=== PATIENT | female | born 1960 | race Caucasian/White ===

== ENCOUNTER 2023-05-06 08:17 | Emergency (ER) | payer MEDICARE ==
[2023-05-06 08:25] VITALS: TEMP 97.8
[2023-05-06 08:29] LABS: Glucose,Whole Blood 158 mg/dL (70-110)
[2023-05-06] MEDS ORDERED: ONDANSETRON 4 MG/2 ML VIAL IVP STA ×2 (08:30→08:40)
--- NOTE | 2023-05-06 08:32 | ED ---
General Adult HPI - General Chief complaint: Chest Pain Stated complaint: Cardiac issues Time Seen by Provider: 05/06/23 08:18 Source: EMS Mode of arrival: EMS - History of Present Illness Initial comments: Dictation was produced using [employer] dictation software. please excuse any grammatical, word or spelling errors. Chief Complaint: 63-year-old female presents emergency Department with headache History of Present Illness: 63-year-old female she presents emergency Department with a headache. Patient woke up at 5 AM to get ready for work. Proximal to 1 hour prior to arrival states that she developed acute onset headache. States that it's bifrontal. She does not have a history of headaches. She does not see a doctor. She has no known history of hypertension. EMS brought patient to the emergency department. He states that he did a manual blood pressure and was found to be significantly elevated with systolics above 200. Patient complains of mild blurry vision to both eyes. Denies any numbness and paresthesias to the arms or legs. EMS reports that patient seemed a little altered upon initial evaluation. She did get some fluids and while en route to the emergency department her symptoms of altered mentation improved. Patient reports that she woke up at 5 AM felt normal. She reports that 1 hour prior to arrival did she start to develop headache.He was reports that patient noticed bradycardia were heart rate dropped briefly to 38 The ROS documented in this emergency department record has been reviewed and confirmed by me. Those systems with pertinent positive or negative responses have been documented in the HPI. All other systems are other negative and/or noncontributory. - Related Data Allergies Allergy/AdvReac Type Severity Reaction Status Date / Time No Known Allergies Allergy Verified 05/06/23 08:25 Review of Systems ROS Statement: Those systems with pertinent positive or pertinent negative responses have been documented in the HPI. ROS Other: All systems not noted in ROS Statement are negative. Past Medical History Past Medical History: No Reported History History of Any Multi-Drug Resistant Organisms: None Reported Past Surgical History: No Surgical Hx Reported Smoking Status: Vaper Past Alcohol Use History: None Reported Past Drug Use History: None Reported General Exam - General Exam Comments Initial Comments: PHYSICAL EXAM: General Impression: Alert and oriented x3, mild distress secondary to pain HEENT: Normocephalic atraumatic, extra-ocular movements intact, pupils equal and reactive to light bilaterally, mucous membranes moist. Cardiovascular: Heart regular rate and rhythm Chest: Able to complete full sentences, no retractions, no tachypnea Abdomen: abdomen soft, non-tender, non-distended, no organomegaly Musculoskeletal: Pulses present and equal in all extremities, no peripheral edema Motor: no focal deficits noted Neurological: CN II-XII grossly intact, no focal motor or sensory deficits noted Skin: Intact with no visualized rashes Psych: Normal affect and mood Course Vital Signs 05/06/23 05/06/23 05/06/23 08:18 08:30 08:49 Temperature 97.8 F Pulse Rate 62 60 63 Respiratory 22 20 20 Rate Blood Pressure 216/130 215/120 186/102 O2 Sat by Pulse 98 97 97 Oximetry 05/06/23 05/06/23 05/06/23 09:10 09:20 09:29 Temperature Pulse Rate 68 61 61 Respiratory 20 18 18 Rate Blood Pressure 176/110 154/106 157/88 O2 Sat by Pulse 96 97 97 Oximetry 05/06/23 09:32 Temperature Pulse Rate 60 Respiratory 18 Rate Blood Pressure 153/94 O2 Sat by Pulse 97 Oximetry - Reevaluation(s) Reevaluation #1: 05/06/23 09:12 Computed tomography scan reviewed by me of the brain shows that patient has intracranial bleed very suspicious for ruptured intracranial artery aneurysm. Code stroke page. Case discussed with on-call stroke neurologist Dr. Lugo requested patient be transferred to [facility]. Patient started on labetalol infusion. EKG Findings - EKG Comments: EKG Findings:: My EKG interpretation: Ventricular rate 69, sinus rhythm,. 169, QRS 80, QTc 450. No MO prolongation, no QTC prolongation, no ST or T-wave changes noted. Multiple PVCs Overall, this EKG is unremarkable Medical Decision Making - Medical Decision Making Was pt. sent in by a medical professional or institution (, PA, SENIOR SQL DBA, urgent care, hospital, or [place] health care facility...) When possible be specific @ -No Did you speak to anyone other than the patient for history (EMS, parent, family, police, friend...)? What history was obtained from this source @ -History obtained from EMS as described above Did you review nursing and triage notes (agree or disagree)? Why? @ -I reviewed and agree with nursing and triage notes Were old charts reviewed (outside hosp., previous admission, EMS record, old EKG, old radiological studies, urgent care reports/EKG's, [place] health [facility] facility records)? Report findings @ -No old charts were reviewed Differential Diagnosis (chest pain, altered mental status, abdominal pain women, abdominal pain men, vaginal bleeding, musculoskeletal, weakness, fever, dyspnea, syncope, headache, dizziness, GI bleed, back pain, seizure, CVA, palpatations, mental health)? @ -Differential Headache: Migraine, tension, cluster, carbon monoxide, central venous thrombosis, pension karma temporal arteritis, acute closure glaucoma, intercranial hemorrhage, mastoiditis, sinusitis, head injury, this is not meant to be an all-inclusive list. EKG interpreted by me (3pts min.). @ -See above X-rays interpreted by me (1pt min.). @ -None done CT interpreted by me (1pt min.). @ -CT brain shows no intracranial bleed U/S interpreted by me (1pt. min.). @ -None done What testing was considered but not performed or refused? (CT, X-rays, U/S, labs)? Why? @ -None What meds were considered but not given or refused? Why? @ -None Did you discuss the management of the patient with other professionals (professionals i.e. , PA, SENIOR SQL DBA, lab, RT, psych nurse, social and human services assistant, accounts payable specialist, teacher, chief legal officer, protective services case worker)? Give summary @ -A discussed with Dr. Lugo as described above Was smoking cessation discussed for >3mins.? @ -No Was critical care preformed (if so, how long)? @ -Yes, 33 minutes Were there social determinants of health that impacted care today? How? (Homelessness, low income, unemployed, alcoholism, drug addiction, transportation, low edu. Level, literacy, decrease access to med. care, residential, rehab)? @ -No Was there de-escalation of care discussed even if they declined (Discuss DNR or withdrawal of care, Hospice)? DNR status @ -No What co-morbidities impacted this encounter? (DM, HTN, Smoking, COPD, CAD, Cancer, CVA, ARF, Chemo, Hep., AIDS, mental health diagnosis, sleep apnea, morbid obesity)? @ -None Was patient admitted / discharged? Hospital course, mention meds given and route, prescriptions, significant lab abnormalities, going to OR and other pertinent info. @ -63-year-old female presents to emergency department with clinical presentation suspicious for ruptured intracranial aneurysm. Vital signs upon arrival shows significant elevated blood pressure. Patient rest of her CT for CT brain showed intracranial bleed. Code stroke page. Patient received CT angiography. Case discussed with stroke neurologist for transferred to [facility]. Case discussed with patient. Patient on labetalol infusion for blood pr essure control. Patient transferred Case discussed with transfer line. Case discussed with [facility] who is accepting patient for ER to [facility] transfer. Undiagnosed new problem with uncertain prognosis? @ -No Drug Therapy requiring intensive monitoring for toxicity (Heparin, Nitro, Insulin, Cardizem)? @ -No Were any procedures done? @ -No Diagnosis/symptom? Acute, or Chronic, or Acute on Chronic? Uncomplicated (without systemic symptoms) or Complicated (systemic symptoms)? @ -1. Ruptured intracranial arterial aneurysm Side effects of treatment? @ -No Exacerbation, Progression, or Severe Exacerbation? @ -No Poses a threat to life or bodily function? How? (Chest pain, [place], [place], pneumonia, PE, COPD, DKA, ARF, appy, cholecystitis, CVA, Diverticulitis, Homicidal, Suicidal, threat to staff... and all critical care pts) @ -yes - Lab Data Result diagrams: 05/06/23 08:30 05/06/23 08:30 Lab Results 05/06/23 05/06/23 05/06/23 Range/Units 08:28 08:30 08:30 WBC 8.3 (3.8-10.6) k/uL RBC 4.98 (3.80-5.40) m/uL Hgb 14.3 (11.4-16.0) gm/dL Hct 44.9 (34.0-46.0) % MCV 90.0 (80.0-100.0) fL MCH 28.7 (25.0-35.0) pg MCHC 31.9 (31.0-37.0) g/dL RDW 13.8 (11.5-15.5) % Plt Count 310 (150-450) k/uL MPV 7.3 Neutrophils % 63 % Lymphocytes % 29 % Monocytes % 5 % Eosinophils % 1 % Basophils % 0 % Neutrophils # 5.2 (1.3-7.7) k/uL Lymphocytes # 2.4 (1.0-4.8) k/uL Monocytes # 0.4 (0-1.0) k/uL Eosinophils # 0.1 (0-0.7) k/uL Basophils # 0.0 (0-0.2) k/uL PT 10.2 (9.0-12.0) sec INR 1.0 (<1.2) APTT 18.3 L (22.0-30.0) sec Sodium (137-145) mmol/L Potassium (3.5-5.1) mmol/L Chloride (98-107) mmol/L Carbon Dioxide (22-30) mmol/L Anion Gap mmol/L BUN (7-17) mg/dL Creatinine (0.52-1.04) mg/dL Est GFR (CKD-EPI)AfAm (>60 ml/min/1.73 sqM) Est GFR (CKD-EPI)NonAf (>60 ml/min/1.73 sqM) Glucose (74-99) mg/dL POC Glucose (mg/dL) 158 H (70-110) mg/dL POC Glu Center Manager ID Theron Pitts Lactic Ac Sepsis Rflx Plasma Lactic Acid Luis M (0.7-2.0) mmol/L Calcium (8.4-10.2) mg/dL Magnesium (1.6-2.3) mg/dL Total Bilirubin (0.2-1.3) mg/dL AST (14-36) U/L ALT (4-34) U/L Alkaline Phosphatase (38-126) U/L Total Protein (6.3-8.2) g/dL Albumin (3.5-5.0) g/dL 05/06/23 05/06/23 05/06/23 Range/Units 08:30 08:30 09:03 WBC (3.8-10.6) k/uL RBC (3.80-5.40) m/uL Hgb (11.4-16.0) gm/dL Hct (34.0-46.0) % MCV (80.0-100.0) fL MCH (25.0-35.0) pg MCHC (31.0-37.0) g/dL RDW (11.5-15.5) % Plt Count (150-450) k/uL MPV Neutrophils % % Lymphocytes % % Monocytes % % Eosinophils % % Basophils % % Neutrophils # (1.3-7.7) k/uL Lymphocytes # (1.0-4.8) k/uL Monocytes # (0-1.0) k/uL Eosinophils # (0-0.7) k/uL Basophils # (0-0.2) k/uL PT (9.0-12.0) sec INR (<1.2) APTT (22.0-30.0) sec Sodium 140 (137-145) mmol/L Potassium 3.4 L (3.5-5.1) mmol/L Chloride 109 H (98-107) mmol/L Carbon Dioxide 21 L (22-30) mmol/L Anion Gap 10 mmol/L BUN 9 (7-17) mg/dL Creatinine 0.64 (0.52-1.04) mg/dL Est GFR (CKD-EPI)AfAm >90 (>60 ml/min/1.73 sqM) Est GFR (CKD-EPI)NonAf >90 (>60 ml/min/1.73 sqM) Glucose 167 H (74-99) mg/dL POC Glucose (mg/dL) (70-110) mg/dL POC Glu Center Manager ID Lactic Ac Sepsis Rflx Y Plasma Lactic Acid Luis M 2.9 H* (0.7-2.0) mmol/L Calcium 8.1 L (8.4-10.2) mg/dL Magnesium 1.8 (1.6-2.3) mg/dL Total Bilirubin 0.8 (0.2-1.3) mg/dL AST 46 H (14-36) U/L ALT 33 (4-34) U/L Alkaline Phosphatase 90 (38-126) U/L Total Protein 7.0 (6.3-8.2) g/dL Albumin 4.2 (3.5-5.0) g/dL Disposition Clinical Impression: Ruptured aneurysm of intracranial artery Disposition: OTHER INSTITUTION NOT DEFINED Condition: Critical Referrals: None,Stated [Primary Care Provider] - 1-2 days - Out of Hospital Transfer - Req. Specs Out of Hospital Transfer - Requested Specifics: Other Emergency Center ([facility]
[2023-05-06] MEDS ORDERED: ONDANSETRON 4 MG/2 ML VIAL IM STA (08:40)
[2023-05-06 08:41] LABS: Basophils % (A) 0 %; Eosinophils # (A) 0.1 k/uL (0-0.7); Eosinophils % (A) 1 %; HCT 44.9 % (34.0-46.0); HGB 14.3 gm/dL (11.4-16.0); Lymphocytes # (A) 2.4 k/uL (1.0-4.8); Lymphocytes % (A) 29 %; MCH 28.7 pg (25.0-35.0); MCHC 31.9 g/dL (31.0-37.0); Mean Platelet Volume 7.3; Monocytes # (A) 0.4 k/uL (0-1.0); Monocytes % (A) 5 %; Neutrophils # (A) 5.2 k/uL (1.3-7.7); Neutrophils % (A) 63 %; Platelet Count 310 k/uL (150-450); RBC 4.98 m/uL (3.80-5.40); RDW 13.8 % (11.5-15.5); WBC 8.3 k/uL (3.8-10.6)
[2023-05-06] MEDS ORDERED: LABETALOL 5 MG/ML VIAL MDV IVP STA (08:55)
[2023-05-06 08:56] LABS: ALT 33 U/L (4-34); AST 46 U/L (14-36); African American GFR (CKD) >90 (>60 ml/min/1.73 sqM); Albumin 4.2 g/dL (3.5-5.0); Alkaline Phosphatase 90 U/L (38-126); Anion Gap 10 mmol/L; Blood Urea Nitrogen 9 mg/dL (7-17); Calcium 8.1 mg/dL (8.4-10.2); Carbon Dioxide 21 mmol/L (22-30); Chloride 109 mmol/L (98-107); Glucose 167 mg/dL (74-99); Magnesium 1.8 mg/dL (1.6-2.3); Non-African American GFR(CKD) >90 (>60 ml/min/1.73 sqM); Potassium 3.4 mmol/L (3.5-5.1); Sodium 140 mmol/L (137-145); Total Bilirubin 0.8 mg/dL (0.2-1.3)
--- NOTE | 2023-05-06 09:00 | CT ---
EXAMINATION TYPE: CT brain wo con DATE OF EXAM: 05/06/2023 COMPARISON: None INDICATION: Acute headache, Elevated blood pressure DLP: 1173 mGycm, Automated exposure control for dose reduction was used. CONTRAST: None CT of the brain is performed utilizing 3 mm thick sections through the posterior fossa and 3 mm thick sections through the remaining calvarium. Study is performed within 24 hours of arrival to the hosp ital. There is diffuse subarachnoid hemorrhage present. The largest volume appears to be in the anterior in terhemispheric fissure. Mild mass effect is adjacent. There is filling of sulci with high density hem orrhage in the midline. This extends to the suprasellar cistern and wraps around the brainstem. No mi dline shift is evident. No subfalcine herniation is evident. No temporal horn dilatation is evident. No intraventricular hemorrhage. No mass lesion is evident. Some mild white matter hypodensity may be in the frontal lobes adjacent to the hemorrhage could be re lated to some edema. Ventricles and sulci are appropriate in size for the patient age. Paranasal sinuses and mastoid air cells within the [id number] are clear. IMPRESSIONS: 1. Acute subarachnoid hemorrhage. This is greater in the midline between the frontal lobes. The rep ort was called to the emergency room physician by Dr. Aguila by telephone at the time of dictation. 0856 hours 05/06/2023.
[2023-05-06 09:15] LABS: Prothrombin Time 10.2 sec (9.0-12.0)
[2023-05-06 09:29] VITALS: RESP 18
[2023-05-06] MEDS ORDERED: LABETALOL 200 MG in SODIUM CHLORIDE 0.9% 160 ML IV SCH (09:30)
[2023-05-06 09:32] VITALS: BP 153/94; PULSE 60
[2023-05-06 09:46] LABS: Partial Thromboplastin Time 18.3 sec (22.0-30.0)
--- NOTE | 2023-05-06 09:56 | CT ---
EXAMINATION TYPE: CT angio head neck DATE OF EXAM: 05/06/2023 HISTORY: Neurologic defecit...CODE STROKE COMPARISON: CT DLP: 1602.7 mGycm. Automated Exposure Control for Dose Reduction was Utilized. TECHNIQUE: CTA scan of the neck is performed without and with IV Contrast, patient injected with 65 ml mL of Isovue 370, axial images are obtained, coronal and sagittal reformatted images are reviewed. Three-D reconstructed images are created on an independent workstation and reviewed. Source images are reviewed. FINDINGS: Carotid/Vascular Structures: There is a three-vessel arch. Right vertebral artery appears dominant. C ommon carotid artery bifurcation appears normal without focal stenosis. There is some plaquing presen t on the right carotid bifurcation. Internal carotid arteries are patent to the skull base. Vertebral arteries are patent to the skull base. Cervical of Ortega: Vertebral basilar system appears normal. Posterior cerebral vasculature is unrema rkable. Carotid siphons appear normal. Internal carotid arteries bifurcate normally into A1 and M1 se gments. A2 segments are normal. The anterior communicating artery is patent. There appears to be a 0.6 cm aneurysm at the anterior communicating artery. Active extravasation is n ot identified. Bilateral posterior communicating arteries are patent IMPRESSION: 1. 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 2. No flow-limiting stenosis bilateral carotid bifurcations. NASCET criteria was used in interpretation of this exam?
== END 2023-05-06 09:44 | disposition other institution (70) ==
LOC: EC 08:17
DX: I60.7 Nontraumatic subarachnoid hemorrhage from unspecified intracranial artery (principal); F17.290 Nicotine dependence, other tobacco product, uncomplicated
CPT/HCPCS: 36415; 93005; 80053; 83605; 83735; 85025; 85610; 85730; 70496; 70450; 70498; 99291; 96365; 96375; J2405; Q9967

== ENCOUNTER 2023-07-01 11:31 | Emergency (ER) | payer MEDICARE ==
[2023-07-01 12:00] LABS: Glucose,Whole Blood 104 mg/dL (70-110)
[2023-07-01 13:23] LABS: Amorphous Sediment,Urine Rare /hpf; Appearance,Urine Cloudy (Clear); Bacteria,Urine Moderate /hpf; Bilirubin,Urine Negative (Negative); Blood,Urine Negative (Negative); Glucose,Urine (UA) Negative (Negative); Hyaline Casts,Urine 2 /lpf (0-2); Ketones,Urine Trace (Negative); Leukocyte Esterase,Urine Moderate (Negative); Mucus,Urine Many /hpf; Nitrite,Urine Negative (Negative); PH, Urine 5.5 (5.0-8.0); Protein,Urine Trace (Negative); RBC,Urine 1 /hpf (0-5); Specific Gravity,Urine 1.018 (1.001-1.035); Squamous Epithelial Cell,Urine <1 /hpf (0-4); WBC,Urine 18 /hpf (0-5)
[2023-07-01 13:25] LABS: Color,Urine Yellow
[2023-07-01 13:29] LABS: Basophils % (A) 0 %; Eosinophils # (A) 0.1 k/uL (0-0.7); Eosinophils % (A) 3 %; HCT 32.9 % (34.0-46.0); Hypochromasia Marked; Lymphocytes % (A) 21 %; MCH 25.8 pg (25.0-35.0); MCHC 30.9 g/dL (31.0-37.0); Monocytes # (A) 0.4 k/uL (0-1.0); Monocytes % (A) 8 %; Neutrophils # (A) 3.2 k/uL (1.3-7.7); Neutrophils % (A) 67 %; Platelet Count 250 k/uL (150-450); RBC 3.94 m/uL (3.80-5.40); RDW 13.9 % (11.5-15.5); WBC 4.8 k/uL (3.8-10.6)
[2023-07-01 13:31] LABS: Amphetamine Screen,Urine Not Detected (NotDetected); Barbiturate Screen,Urine Not Detected (NotDetected); Benzodiazepines Screen,Urine Not Detected (NotDetected); Cocaine Screen,Urine Not Detected (NotDetected); Methadone Screen, Urine Not Detected (NotDetected); Opiate Screen,Urine Not Detected (NotDetected); Oxycodone Screen, Urine Not Detected (NotDetected); Phencyclidine Screen,Urine Not Detected (NotDetected); Tricyclic Antidepressant,Urine Not Detected (NotDetected); Urn Cannabinoid Scrn Detected (NotDetected)
[2023-07-01 13:37] LABS: HGB 10.2 gm/dL (11.4-16.0); MCV 83.6 fL (80.0-100.0)
[2023-07-01 13:53] LABS: African American GFR (CKD) >90 (>60 ml/min/1.73 sqM); Alcohol <10 mg/dL; Anion Gap 9 mmol/L; Blood Urea Nitrogen 14 mg/dL (7-17); Calcium 8.4 mg/dL (8.4-10.2); Carbon Dioxide 25 mmol/L (22-30); Chloride 107 mmol/L (98-107); Glucose 99 mg/dL (74-99); Non-African American GFR(CKD) >90 (>60 ml/min/1.73 sqM); Potassium 4.5 mmol/L (3.5-5.1); Sodium 141 mmol/L (137-145)
[2023-07-01] MEDS ORDERED: cefTRIAXone IN SWFI 1,000 MG/10 ML SYRINGE IVP STA (14:04)
--- NOTE | 2023-07-01 16:08 | ED ---
General Adult HPI - General Chief complaint: Psychiatric Symptoms Stated complaint: mental health Time Seen by Provider: 07/01/23 11:51 Source: patient, EMS, RN notes reviewed, old records reviewed Mode of arrival: EMS Limitations: altered mental status - History of Present Illness Initial comments: Patient is a 63-year-old female sent in from [facility] for psychiatric evaluation. They petitioned her. They state she is having paranoid thoughts and delusions. She has been attempting to elope from the facility. She currently is alert and oriented 4. States that they're changing her home to become [facility]. Denies any hallucinations. Denies any suicidal or homicidal ideations, attempts, plans. Denies any other acute complaints at this time. 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 Patient denies any current headaches. Has no other acute complaints this time. Presents over concern for the altered mental status for the patient. Previous intracranial hemorrhage was in the frontal lobe. - Related Data Home Medications Medication Instructions Recorded Confirmed Acetaminophen [Tylenol] 650 mg PO Q4H PRN 07/01/23 07/01/23 Aspirin EC [Ecotrin Low Dose] 81 mg PO DAILY 07/01/23 07/01/23 Atorvastatin [Lipitor] 80 mg PO HS 07/01/23 07/01/23 Divalproex [Depakote] 250 mg PO TID 07/01/23 07/01/23 Famotidine [Pepcid] 20 mg PO BID 07/01/23 07/01/23 Loratadine [Claritin] 10 mg PO DAILY 07/01/23 07/01/23 Ticagrelor [Brilinta] 90 mg PO BID 07/01/23 07/01/23 clonazePAM [KlonoPIN] 0.5 mg PO BID 07/01/23 07/01/23 Previous Rx's Medication Instructions Recorded Sulfamethox-Tmp 800-160Mg [Bactrim 1 tab PO Q12HR 7 Days #14 tab 07/01/23 DS 800-160 mg] Allergies Allergy/AdvReac Type Severity Reaction Status Date / Time No Known Allergies Allergy Verified 07/01/23 14:21 Review of Systems ROS Statement: Those systems with pertinent positive or pertinent negative responses have been documented in the HPI. Review of Systems: CONST: Denies fever EYES: Denies blurry vision ENT: Denies nasal congestion C/V: Denies Chest pain RESP: Denies shortness of breath GI: Denies abdominal pain : Denies dysuria SKIN: Denies rash. MSK: Denies joint pain. NEURO: Denies headache PSYCH: Denies suicidal and homicidal ideations/plans/attempts. Denies visual or auditory hallucinations. ROS Other: All systems not noted in ROS Statement are negative. Past Medical History Past Medical History: No Reported History History of Any Multi-Drug Resistant Organisms: None Reported Past Surgical History: Orthopedic Surgery Additional Past Surgical History / Comment(s): Back surgery Smoking Status: Light tobacco smoker Past Alcohol Use History: None Reported Past Drug Use History: None Reported General Exam - General Exam Comments Initial Comments: General: Appears in no acute distress. Patient does seem to be having delusions possibly, discussing how she is supposed to be at home and not at the nursing [facility]. HEAD: Normal with no signs of head trauma. EYES: PERRLA, EOMI, conjunctiva normal, no discharge. Pupils are 3 mm equal bilaterally. ENT: Hearing grossly intact, normal oropharynx. RESPIRATORY: Clear breath sounds bilaterally. No wheezes, rales, or rhonchi. C/V: Regular rate and rhythm. S1 and S2 auscultated, peripheral pulses 2+ and intact throughout ABD: Abd is soft, nontender, nondistended EXT: Normal range of motion, no obvious deformity SKIN: No rashes or lesions observed on exposed skin. NEURO: Alert and oriented 3-4. No focal deficits. Limitations: altered mental status Course Vital Signs 07/01/23 07/01/23 07/02/23 11:36 22:11 07:00 Temperature 97.8 F 97.7 F Pulse Rate 70 75 76 Respiratory 20 18 18 Rate Blood Pressure 116/76 111/66 117/84 O2 Sat by Pulse 96 95 98 Oximetry Medical Decision Making - Medical Decision Making Was pt. sent in by a medical professional or institution (, PA, HAND CIGAR MAKER, urgent care, hospital, or usp...) When possible be specific @ -Sent from [facility] for psychiatric evaluation and petitioned. Did you speak to anyone other than the patient for history (EMS, parent, family, police, friend...)? What history was obtained from this source @ -No Did you review nursing and triage notes (agree or disagree)? Why? @ -I reviewed and agree with nursing and triage notes Were old charts reviewed (outside hosp., previous admission, EMS record, old EKG, old radiological studies, urgent care reports/EKG's, usp records)? Report findings @ -Review of old chart from April 2023 when she had intracranial hemorrhage and was transferred. Differential Diagnosis (chest pain, altered mental status, abdominal pain women, abdominal pain men, vaginal bleeding, weakness, fever, dyspnea, syncope, headache, dizziness, GI bleed, back pain, seizure, CVA, palpatations, mental health, musculoskeletal)? @ -Differential Mental Health Depression, anxiety, bipolar, psychosis, schizophrenia, borderline personality, situational depression, adjustment disorder, behavioral disorder, brain tumor, malingering, substance abuse, encephalopathy, medication reaction, dementia, hypothyroidism, degenerative neurologic disorder, lupus.... This is not meant to be all-inclusive list EKG interpreted by me (3pts min.). @ -As above X-rays interpreted by me (1pt min.). @ -None done CT interpreted by me (1pt min.). @ -None done U/S interpreted by me (1pt. min.). @ -None done What testing was considered but not performed or refused? (CT, X-rays, U/S, labs)? Why? @ -None What meds were considered but not given or refused? Why? @ -None Did you discuss the management of the patient with other professionals (professionals i.e. , PA, HAND CIGAR MAKER, lab, RT, psych nurse, director social, chrome tanner, teacher, special forces officer, assistant case manager)? Give summary @ -Discuss case with EPS who agreed to evaluation once medically cleared. Was smoking cessation discussed for >3mins.? @ -No Was critical care preformed (if so, how long)? @ -No Were there social determinants of health that impacted care today? How? (Homelessness, low income, unemployed, alcoholism, drug addiction, transportation, low edu. Level, literacy, decrease access to med. care, [facility], rehab)? @ -No Was there de-escalation of care discussed even if they declined (Discuss DNR or withdrawal of care, Hospice)? DNR status @ -No What co-morbidities impacted this encounter? (DM, HTN, Smoking, COPD, CAD, Cancer, CVA, ARF, Chemo, Hep., AIDS, mental health diagnosis, sleep apnea, morbid obesity)? @ -None Was patient admitted / discharged? Hospital course, mention meds given and rou te, prescriptions, significant lab abnormalities, going to OR and other pertinent info. @ -Based on the patient's presentation and physical exam, do believe she requires psychiatric evaluation. She was placed in green scrubs. She has no history of psychiatric illness but does have a history of a frontal lobe lead which could be affecting her current behavior. We'll obtain laboratory studies. Patient was in agreement this plan. She is cooperative. Sitting was ordered. Labs show findings concerning for UTI. She was given a dose of IV Rocephin and will be given a prescription for oral antibiotics. EKG is within acceptable limits. At this time, patient is medically cleared for evaluation by psychiatry. Disposition is pending psychiatric evaluation. Paper prescription was provided and placed on the patient's chart for Bactrim for antibiotic therapy for her UTI. EPS evaluated the patient and determined that she will be admitted to inpatient geriatric psych. Pending placement at this time. Patient was accepted to [facility]. Accepting physician is Dr. Solitario. Undiagnosed new problem with uncertain prognosis? @ -No Drug Therapy requiring intensive monitoring for toxicity (Heparin, Nitro, Insulin, Cardizem)? @ -No Were any procedures done? @ -No Diagnosis/symptom? @ -Encounter for psychiatric evaluation, UTI Acute, or Chronic, or Acute on Chronic? @ -Acute Uncomplicated (without systemic symptoms) or Complicated (systemic symptoms)? @ -Complicated Side effects of treatment? @ -No Exacerbation, Progression, or Severe Exacerbation? @ -No Poses a threat to life or bodily function? How? (Chest pain, [place], [place], pneumonia, PE, COPD, DKA, ARF, appy, cholecystitis, CVA, Diverticulitis, Homicidal, Suicidal, threat to staff... and all critical care pts) @ -No - Lab Data Result diagrams: 07/01/23 12:33 07/01/23 12:33 Lab Results 07/01/23 07/01/23 07/01/23 Range/Units 11:58 12:33 12:33 WBC 4.8 (3.8-10.6) k/uL RBC 3.94 (3.80-5.40) m/uL Hgb 10.2 L D (11.4-16.0) gm/dL Hct 32.9 L (34.0-46.0) % MCV 83.6 D (80.0-100.0) fL MCH 25.8 (25.0-35.0) pg MCHC 30.9 L (31.0-37.0) g/dL RDW 13.9 (11.5-15.5) % Plt Count 250 (150-450) k/uL MPV 8.0 Neutrophils % 67 % Lymphocytes % 21 % Monocytes % 8 % Eosinophils % 3 % Basophils % 0 % Neutrophils # 3.2 (1.3-7.7) k/uL Lymphocytes # 1.0 (1.0-4.8) k/uL Monocytes # 0.4 (0-1.0) k/uL Eosinophils # 0.1 (0-0.7) k/uL Basophils # 0.0 (0-0.2) k/uL Hypochromasia Marked Sodium (137-145) mmol/L Potassium (3.5-5.1) mmol/L Chloride (98-107) mmol/L Carbon Dioxide (22-30) mmol/L Anion Gap mmol/L BUN (7-17) mg/dL Creatinine (0.52-1.04) mg/dL Est GFR (CKD-EPI)AfAm (>60 ml/min/1.73 sqM) Est GFR (CKD-EPI)NonAf (>60 ml/min/1.73 sqM) Glucose (74-99) mg/dL POC Glucose (mg/dL) 104 (70-110) mg/dL POC Glu Band Sawing Machine Operator ID Halley Badillo Calcium (8.4-10.2) mg/dL Urine Color Urine Appearance (Clear) Urine pH (5.0-8.0) Ur Specific [place] (1.001-1.035) Urine Protein (Negative) Urine Glucose (UA) (Negative) Urine Ketones (Negative) Urine Blood (Negative) Urine Nitrite (Negative) Urine Bilirubin (Negative) Urine Urobilinogen (<2.0) mg/dL Ur Leukocyte Esterase (Negative) Urine RBC (0-5) /hpf Urine WBC (0-5) /hpf Urine WBC Clumps (None) /hpf Ur Squamous Epith Cells (0-4) /hpf Amorphous Sediment (None) /hpf Urine Bacteria (None) /hpf Hyaline Casts (0-2) /lpf Urine Mucus (None) /hpf Urine Opiates Screen Not Detected (NotDetected) Ur Oxycodone Screen Not Detected (NotDetected) Urine Methadone Screen Not Detected (NotDetected) Ur Propoxyphene Screen Not Detected (NotDetected) Ur Barbiturates Screen Not Detected (NotDetected) U Tricyclic Antidepress Not Detected (NotDetected) Ur Phencyclidine Scrn Not Detected (NotDetected) Ur Amphetamines Screen Not Detected (NotDetected) U Methamphetamines Scrn Not Detected (NotDetected) U Benzodiazepines Scrn Not Detected (NotDetected) Urine Cocaine Screen Not Detected (NotDetected) U Marijuana (THC) Screen Detected H (NotDetected) Serum Alcohol mg/dL Coronavirus (PCR) (Not Detectd) 07/01/23 07/01/23 07/02/23 Range/Units 12:33 12:33 06:44 WBC (3.8-10.6) k/uL RBC (3.80-5.40) m/uL Hgb (11.4-16.0) gm/dL Hct (34.0-46.0) % MCV (80.0-100.0) fL MCH (25.0-35.0) pg MCHC (31.0-37.0) g/dL RDW (11.5-15.5) % Plt Count (150-450) k/uL MPV Neutrophils % % Lymphocytes % % Monocytes % % Eosinophils % % Basophils % % Neutrophils # (1.3-7.7) k/uL Lymphocytes # (1.0-4.8) k/uL Monocytes # (0-1.0) k/uL Eosinophils # (0-0.7) k/uL Basophils # (0-0.2) k/uL Hypochromasia Sodium 141 (137-145) mmol/L Potassium 4.5 (3.5-5.1) mmol/L Chloride 107 (98-107) mmol/L Carbon Dioxide 25 (22-30) mmol/L Anion Gap 9 mmol/L BUN 14 (7-17) mg/dL Creatinine 0.54 (0.52-1.04) mg/dL Est GFR (CKD-EPI)AfAm >90 (>60 ml/min/1.73 sqM) Est GFR (CKD-EPI)NonAf >90 (>60 ml/min/1.73 sqM) Glucose 99 (74-99) mg/dL POC Glucose (mg/dL) (70-110) mg/dL POC Glu Band Sawing Machine Operator ID Calcium 8.4 (8.4-10.2) mg/dL Urine Color Yellow Urine Appearance Cloudy H (Clear) Urine pH 5.5 (5.0-8.0) Ur Specific [place] 1.018 (1.001-1.035) Urine Protein Trace H (Negative) Urine Glucose (UA) Negative (Negative) Urine Ketones Trace H (Negative) Urine Blood Negative (Negative) Urine Nitrite Negative (Negative) Urine Bilirubin Negative (Negative) Urine Urobilinogen 6.0 (<2.0) mg/dL Ur Leukocyte Esterase Moderate H (Negative) Urine RBC 1 (0-5) /hpf Urine WBC 18 H (0-5) /hpf Urine WBC Clumps Rare H (None) /hpf Ur Squamous Epith Cells <1 (0-4) /hpf Amorphous Sediment Rare H (None) /hpf Urine Bacteria Moderate H (None) /hpf Hyaline Casts 2 (0-2) /lpf Urine Mucus Many H (None) /hpf Urine Opiates Screen (NotDetected) Ur Oxycodone Screen (NotDetected) Urine Methadone Screen (NotDetected) Ur Propoxyphene Screen (NotDetected) Ur Barbiturates Screen (NotDetected) U Tricyclic Antidepress (NotDetected) Ur Phencyclidine Scrn (NotDetected) Ur Amphetamines Screen (NotDetected) U Methamphetamines Scrn (NotDetected) U Benzodiazepines Scrn (NotDetected) Urine Cocaine Screen (NotDetected) U Marijuana (THC) Screen (NotDetected) Serum Alcohol <10 mg/dL Coronavirus (PCR) Not Detected (Not Detectd) - EKG Data -: EKG Interpreted by Me EKG Comments: 12-lead Electrocardiogram Interpretation Note EKG was reviewed and interpreted by myself. 12-lead ECG performed at 1241 is interpreted by me as revealing normal sinus rhythm at a rate of 74 beats per minute. Penn is normal. DC interval is 152 ms, QRS duration is 84 ms, QTc is 396 ms.. There were no ST or T wave abnormalities to suggest myocardial ischemia or injury. R wave progression across the precordium was satisfactory. By my interpretation this EKG is non-diagnostic for acute ischemia. Disposition Clinical Impression: UTI (urinary tract infection), Encounter for psychiatric assessment Disposition: TRANSFER TO PSYCH HOSP/UNIT Condition: Stable Prescriptions: Sulfamethox-Tmp 800-160Mg [Bactrim DS 800-160 mg] 1 tab PO Q12HR 7 Days #14 tab Is patient prescribed a controlled substance at d/c from ED?: No Referrals: None,Stated [Primary Care Provider] - 1-2 days
[2023-07-01 22:20] VITALS: RESP 18
[2023-07-02] MEDS ORDERED: TICAGRELOR 90 MG TAB PO SCH (09:00)
[2023-07-02] MEDS ORDERED: clonazePAM 0.5 MG TAB PO SCH (09:00)
[2023-07-02] MEDS ORDERED: FAMOTIDINE 20 MG TAB PO SCH (09:00)
[2023-07-02] MEDS ORDERED: ASPIRIN 81 MG PO SCH (09:00)
[2023-07-02] MEDS ORDERED: DIVALPROEX 250 MG TABLET.DR PO SCH (09:00)
[2023-07-02] MEDS ORDERED: LORATADINE 10 MG TAB PO SCH (09:00)
[2023-07-02] MEDS ORDERED: SULFAMETHOX-TMP 800-160MG 1 EACH TAB PO SCH (09:00)
[2023-07-02 09:30] VITALS: BP 107/71; PULSE 83; TEMP 98.4
[2023-07-02] MEDS ORDERED: ATORVASTATIN 80 MG TAB PO SCH (21:00)
== END 2023-07-02 10:18 ==
LOC: EC 11:31
DX: Z00.8 Encounter for other general examination (principal); N39.0 Urinary tract infection, site not specified; Z77.22 Contact with and (suspected) exposure to environmental tobacco smoke (acute) (chronic); Z79.82 Long term (current) use of aspirin; Z20.822 Contact with and (suspected) exposure to COVID-19
CPT/HCPCS: 82075; 36415; 93005; 80048; 85025; 81001; 80306; 87086; 87635; 99285; 96374; G0480; J0696; 80320